=== PATIENT | male | born 1975 | race Caucasian/White ===

== ENCOUNTER 2020-05-24 12:31 | Inpatient (IN) | payer MEDICAID, SELFPAY ==
[2020-05-24 12:37] VITALS: BP 139/98; PULSE 87; RESP 20; TEMP 36.4; O2SAT 97
[2020-05-24 12:39] VITALS: BMI 34.0
[2020-05-24 14:00] VITALS: BP 139/98; PULSE 87; RESP 18; TEMP 36.4; O2SAT 97
[2020-05-24] MEDS: hyDROXYzine 25 mg Capsule 50 MG PO ×2 (18:08→20:18)
[2020-05-24] MEDS: nicotine 21 mg Patch 1 PATCH TRANSDERMA (18:54)
[2020-05-24 19:40] VITALS: BP 144/94; PULSE 85; RESP 16; TEMP 36.5; O2SAT 92
[2020-05-24] MEDS: trazodone 50 mg Tablet PO (20:18)
[2020-05-25] MEDS: acetaminophen 325 mg Tablet 650 MG PO ×2 (02:29→19:14)
[2020-05-25 05:53] VITALS: BP 125/91; PULSE 102; RESP 16; TEMP 36.3; O2SAT 92
--- NOTE | 2020-05-25 12:01 | PC.NURSE ---
CALLED [facility] IN [place], [place] [phone], SPOKE TO UYEN. SHE STATED THAT PT DOES FILL MEDS WITH THEM, SHE STATED HE LAST PICKED UP CLONAZEPAM 0.5 MG PO TID, BUT HE HAS NO MORE REFILLS FOR THIS MEDICATION.
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
[2020-05-25 13:53] VITALS: BP 124/64; PULSE 88; RESP 20; TEMP 36.2; O2SAT 93
[2020-05-25] MEDS: nicotine 2 mg Gum BUCCAL (19:14)
[2020-05-25 20:23] VITALS: BP 143/92; PULSE 80; RESP 16; TEMP 36.5; O2SAT 95
[2020-05-25] MEDS: CLONazepam 0.5 mg Tablet PO (20:53)
[2020-05-25] MEDS: trazodone 150 mg Tablet PO (20:53)
[2020-05-25] MEDS: hyDROXYzine 25 mg Capsule 50 MG PO (20:54)
[2020-05-26] MEDS: trazodone 50 mg Tablet PO (00:11)
[2020-05-26] MEDS: ibuprofen 200 mg Tablet 400 MG PO ×3 (00:13→19:10)
[2020-05-26 06:00] VITALS: BP 101/67; PULSE 97; RESP 16; TEMP 36.4; O2SAT 93
[2020-05-26] MEDS: CLONazepam 0.5 mg Tablet PO ×3 (08:13→21:01)
[2020-05-26] MEDS: nicotine 21 mg Patch 1 PATCH TRANSDERMA (09:58)
--- NOTE | 2020-05-26 13:06 | P.PN_ITS ---
Subjective NPU Subjective: Interval history: Maximo presents today reporting that he did not sleep well last night absent the Ambien he is prescribed. The nurses validated the medication and restarted his Ambien. Additionally we started the Abilify in hopes of possibly switching over to that from the Invega. This was after a discussion of the risks, benefits and alternatives and he understood and agreed to proceed as is documented in his note. Mental Status Exam MSE Comments: This is an obese white male in hospital scrubs with limited grooming and adequate eye contact. No abnormal movements except for psychomotor retardation. Cooperative with exam in no acute distress. Speech was decreased rate and volume. Mood described as tired, affect subdued. Thought process organized. Thought content: Patient denied homicidal ideation but endorsed having had suicidal ideations, there were no delusions reported, but he has some notable paranoia, he endorses auditory hallucinations but does not appear to be attending to internal stimuli. Attention and concentration appear intact and memory appeared mostly reliable but none were formally tested. He is alert and oriented ?3. Insight and judgment are limited, and pulse control appears fair. Vitals/I&O/Wt Last Vital Signs Temp 97.5 F L 05/26/20 06:00 Pulse 97 05/26/20 06:00 Resp 16 05/26/20 06:00 BP 101/67 05/26/20 06:00 Pulse Ox 93 05/26/20 06:00 A&P Additional A&P Information (1) Psychotic disorder: (2) Depression: (3) Suicidal thoughts: (4) Anxiety: Additional A&P Information This is a 44-year-old white male with a fairly short history of mental health di fficulties who presents with continued psychosis on current medication. 1. Continue current medication. Restarted remainder of home medications including Ambien 2. Continue every 15 minute checks for safety. 3. Encourage individual, group and milieu therapy. 4. Work to get some collateral information given his limited ability as a historian. Involuntary Hold Information 96 Hour Hold: 96 Hour Involuntary Admission: No Attestations NPU Medical Necessity Statement*: Inpatient hospitalization is medically necessary and the clinically appropriate intervention at this time. We will monitor medications and make changes as indicated. Likely length of stay 2-4 days. 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
[2020-05-26 13:29] VITALS: BP 112/72; PULSE 70; RESP 18; TEMP 36.6; O2SAT 99
[2020-05-26] MEDS: ARIPiprazole 10 mg Tablet PO (16:57)
--- NOTE | 2020-05-26 16:58 | PC.NURSE ---
pharmacy contacted about pt home medication per dr. washington request. [facility] @ [phone]. home meds that were clarified with pharmacy were Symbicort 160 mcg inh bid prn, Flexeril 10 mg TID PRN, Trazodone 150 mg at bedtime, Ambien [address] Washington notified.
[2020-05-26] MEDS: nicotine 2 mg Gum BUCCAL (19:23)
--- NOTE | 2020-05-26 19:40 | P.PN_ITS ---
NPU Therapy Progress Note Therapy Progress Note Date: 05/26/20 Time In: 18:00 Time Out: 18:20 Symptoms Reported: says he is doing fine . He is pleasant but observed to have a flat affect Mood: pleasant Progress Note: ANTHONY approached Maximo who is in the dayroom watching T.V. He reports he hears voices and Dr. Matute has started him on Abilify to hopefully reduce this symptom. He answers questions appropriately but does not engage in back and forth conversation. He does report having flashbacks about an injury he had in which the bone of his leg punctured his skin. He does report having a hx of PTSD diagnosis and struggles with nightmares of the injury. He is unsure what caused his psychosis to escalate but does report stress in the home. He has 2 children, 12 and 16, and describes this as stressful. His is supportive. He denies needing to talk further about anything but thanks ANTHONY for speaking with him. Intervention: ANTHONY provided active listening and empathetic support. He reports receiving outpatient services in [place], [place], but only has seen his therapist 2 months. They have been discussing coping skills. ANTHONY encouraged Maximo to discuss continued trauma sx with his therapist in order to help reduce nightmares. Reported Goals Before Discharge: Continue Abilify prescription, none other reported
[2020-05-26] MEDS: hyDROXYzine 25 mg Capsule 50 MG PO (21:01)
[2020-05-26] MEDS: trazodone 150 mg Tablet PO (21:01)
[2020-05-26 21:24] VITALS: BP 132/92; PULSE 82; RESP 18; TEMP 36.6; O2SAT 93
[2020-05-27 06:00] VITALS: BP 119/82; PULSE 84; RESP 19; TEMP 36.2; O2SAT 91
[2020-05-27] MEDS: ARIPiprazole 10 mg Tablet PO (08:03)
[2020-05-27] MEDS: CLONazepam 0.5 mg Tablet PO ×3 (08:03→21:45)
[2020-05-27] MEDS: nicotine 21 mg Patch 1 PATCH TRANSDERMA (10:44)
[2020-05-27 14:00] VITALS: BP 123/78; PULSE 75; RESP 18; TEMP 37.1; O2SAT 98
[2020-05-27] MEDS: ibuprofen 200 mg Tablet 400 MG PO ×2 (14:45→21:46)
--- NOTE | 2020-05-27 18:47 | P.PN_ITS ---
Subjective NPU Subjective: Interval history: Mode presents today reporting that he is doing better on the medication. He reports that he is no longer having thoughts to kill himself. He endorsed having a family member that can come pick him up. We discussed the risk benefits and alternatives of discharging in the morning with final day of observation and he understood and agreed to proceed as is documented in this note. Mental Status Exam MSE Comments: This is an obese white male in hospital scrubs with limited grooming and adequate eye contact. No abnormal movements except for psychomotor retardation. Cooperative with exam in no acute distress. Speech was decreased rate and volume. Mood described as a little better, affect a little less subdued. Thought process organized. Thought content: Patient denied suicidal or homicidal ideation, there were no delusions reported, and he appeared to be less paranoid, he denied visual hallucinations and reported a decrease in his auditory hallucinations. Attention and concentration appear intact and memory appeared mostly reliable but none were formally tested. He is alert and oriented ?3. Insight and judgment are limited, but improving and pulse control appears fair. Vitals/I&O/Wt Last Vital Signs Temp 98.4 F 05/27/20 22:00 Pulse 91 05/27/20 22:00 Resp 18 05/27/20 22:00 BP 130/96 05/27/20 22:00 Pulse Ox 93 05/27/20 22:00 A&P Additional A&P Information (1) Psychotic disorder: (2) Depression: (3) Suicidal thoughts: (4) Anxiety: Additional A&P Information This is a 44-year-old white male with a fairly short history of mental health difficulties who presents with continued psychosis on current medication. 1. Continue current medication. 2. Continue every 15 minute checks for safety. 3. Encourage individual, group and milieu therapy. Involuntary Hold Information 96 Hour Hold: 96 Hour Involuntary Admission: No Attestations NPU Medical Necessity Statement*: Inpatient hospitalization is medically necessary and the clinically appropriate intervention at this time. We will monitor medications and make changes as indicated. Likely length of stay 1-3 days. Tentative plan for discharge in the morning. 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
[2020-05-27] MEDS: nicotine 2 mg Gum BUCCAL (19:29)
[2020-05-27] MEDS: hyDROXYzine 25 mg Capsule 50 MG PO (21:45)
[2020-05-27] MEDS: trazodone 150 mg Tablet PO (21:45)
[2020-05-27 22:00] VITALS: BP 130/96; PULSE 91; RESP 18; TEMP 36.9; O2SAT 93
--- NOTE | 2020-05-28 05:07 | PC.NURSE ---
PM assessment Pt is calm and quiet, only came out of his room for snack and medication this evening. Pt denies pain, denies SI/HI, Denies AH/VH and contracts for safety in event of change. Pt v/s are stable and patient slept most of the night.
[2020-05-28 06:00] VITALS: BP 118/71; PULSE 91; RESP 17; TEMP 37.3; O2SAT 94
[2020-05-28] MEDS: CLONazepam 0.5 mg Tablet PO (08:24)
[2020-05-28] MEDS: ARIPiprazole 10 mg Tablet PO (08:24)
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
[2020-05-28] MEDS: ibuprofen 200 mg Tablet 400 MG PO (09:43)
[2020-05-28 09:45] VITALS: BP 118/71; PULSE 91; RESP 17; TEMP 37.3; O2SAT 94
== END 2020-05-28 11:05 | disposition home or self-care (01) | DRG 885 ==
PROVIDERS: Admitting Provider Psychiatry & Neurology Psychiatry; Visit Provider Psychiatry & Neurology Psychiatry
DX: F23 Brief psychotic disorder (principal); R45.851 Suicidal ideations; F41.8 Other specified anxiety disorders; F17.210 Nicotine dependence, cigarettes, uncomplicated; Z91.5 Personal history of self-harm
CPT/HCPCS: 12345